=== PATIENT | male | born 1965 | race Asian ===

== ENCOUNTER 2016-06-22 16:27 | Emergency (ER) | payer OTHER ==
[2016-06-22 16:53] VITALS: BP 131/62; PULSE 52; RESP 14; TEMP 96.8; O2SAT 97
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
--- NOTE | 2016-06-22 17:30 | DX ---
Right Wrist, Four Views History: Injury to right wrist, with pain at ulnar aspect. Findings: Normal mineralization and alignment. No evidence for an acute fracture or dislocation. M ild spurring is seen at the scaphoid-trapezium articulation. No evidence for a periarticular erosion or soft tissue calcification. Impression: No evidence for a fracture. Minimal early degenerative change scaphoid-trapezium articu lation.
== END 2016-06-22 17:53 | disposition home or self-care (01) ==
LOC: CED 16:27
DX: S60.211A Contusion of right wrist, initial encounter (principal); Y04.2XXA Assault by strike against or bumped into by another person, initial encounter; Y99.0 Civilian activity done for income or pay; Y92.129 Unspecified place in nursing home as the place of occurrence of the external cause; Y93.F9 Activity, other caregiving
CPT/HCPCS: 73110-PO; G0463-PO; L3807

== ENCOUNTER 2017-04-25 16:28 | Emergency (ER) | payer OTHER ==
[2017-04-25 16:37] VITALS: BP 133/82; PULSE 62; RESP 18; TEMP 98; O2SAT 96
--- NOTE | 2017-04-25 16:43 | EDPHY ---
H & P Stated Complaint: c/o bilat shoulder pain - worse on rt side from lifting Pt's Time Seen by Provider: 04/25/17 16:38 HPI/ROS: CHIEF COMPLAINT: Right shoulder pain HISTORY OF PRESENT ILLNESS: The patient is a 52-year-old man who comes to the emergency department complaining of bilateral shoulder pain, worse on the right. 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 About a week ago he developed pain in both shoulders as well as left elbow. He states that ibuprofen made the pain in his left shoulder and elbow resolved but he persists the with pain in the right shoulder. He has pain with rotating his shoulder externally. He has normal range of motion but states that he has a popping sensation. Normal strength. REVIEW OF SYSTEMS: Constitutional: denies: chills, fever, recent illness, recent injury EENTM: denies: blurred vision, double vision, nose congestion Respiratory: denies: cough, shortness of breath Cardiac: denies: chest pain, irregular heart rate, lightheadedness, palpitations Gastrointestinal/Abdominal: denies: abdominal pain, diarrhea, nausea, vomiting, blood streaked stools Genitourinary: denies: dysuria, frequency, hematuria, pain Musculoskeletal: See HPI Skin: denies: lesions, rash, jaundice, bruising Neurological: denies: headache, numbness, paresthesia, tingling, dizziness, weakness Hematologic/Lymphatic: denies: blood clots, easy bleeding, easy bruising Immunologic/allergic: denies: HIV/AIDS, transplant EXAM: GENERAL: Well-appearing, well-nourished and in no acute distress. HEAD: Atraumatic, normocephalic. EYES: Pupils equal round and reactive to light, extraocular movements intact, sclera anicteric, conjunctiva are normal. ENT: TMs normal, nares patent, oropharynx clear without exudates. Moist mucous membranes. NECK: Normal range of motion, supple without lymphadenopathy or JVD. LUNGS: Breath sounds clear to auscultation bilaterally and equal. No wheezes rales or rhonchi. HEART: Regular rate and rhythm without murmurs, rubs or gallops. ABDOMEN: Soft, nontender, normoactive bowel sounds. No guarding, no rebound. No masses appreciated. BACK: No CVA tenderness, no spinal tenderness, step-offs or deformities EXTREMITIES: Right shoulder pain, no swelling or tenderness, pain with external rotation. Pain with supination. No pain with lateral or anterior elevation. Normal pulses and sensation. Normal strength. NEUROLOGICAL: Cranial nerves II through XII grossly intact. Normal speech, normal gait. 5/5 strength, normal movement in all extremities, normal sensation PSYCH: Normal mood, normal affect. SKIN: Warm, dry, normal turgor, no visible rashes or lesions. Source: Patient Exam Limitations: No limitations - Personal History Current Tetanus Diphtheria and Acellular Pertussis (TDAP): Yes - Medical/Surgical History Hx Asthma: No Hx Chronic Respiratory Disease: No Hx Diabetes: No Hx Cardiac Disease: No Hx Renal Disease: No Hx Cirrhosis: No Hx Alcoholism: No Other PMH: PCP Dr Prince. Tetanus UTD. FLU vacc UTD. Denies surg. - Family History Significant Family History: No pertinent family hx - Social History Smoking Status: Never smoked Alcohol Use: None Drug Use: None Constitutional: Initial Vital Signs Temperature (C) 36.6 C 04/25/17 16:35 Heart Rate 62 04/25/17 16:35 Respiratory Rate 18 04/25/17 16:35 Blood Pressure 133/82 H 04/25/17 16:35 O2 Sat (%) 96 04/25/17 16:35 O2 Delivery Mode Room Air Allergies/Adverse Reactions: No Known Allergies Allergy (Verified 06/22/16 16:53) Home Medications: Medication Instructions Recorded No Medications [NO HOME 1 ea [facility] [place] 11/12/11 MEDICATIONS] Medical Decision Making - Diagnostics Imaging Results: Imaging Impressions Shoulder X-Ray 04/25/17 16:41 Impression: 1. No fracture or dislocation. 2. Minimal acromioclavicular osteoarthritis. Imaging: Discussed imaging studies w/ desulphurizer operator Radiologist ED Course/Re-evaluation: We discussed the x-ray results. The patient is reassured. We discussed ibuprofen and rest and follow up with Orthopedics possibly for MRI and further evaluation. The patient understands and agrees with this plan. He declines any further workup or testing at this time. Differential Diagnosis: Partial list of the Differential diagnosis considered include but were not limited to; ligamentous injury, bursitis, rotator cuff injury, impingement and although unlikely based on the history and physical exam, I also considered nerve injury, fracture, infection, neck injury. I discussed these differential diagnoses and the plan with the patient as well as the usual and expected course. The patient understands that the diagnosis is provisional and that in medicine we are not always correct and that further workup is often warranted. Usual and customary warnings were given. All of the patient's questions were answered. The patient was instructed to return to the emergency department should the symptoms at all worsen or return, otherwise to followup with the physician as we discussed. Departure - Departure Disposition: Home, Routine, Self-Care Clinical Impression: Right shoulder pain Qualifiers: Chronicity: acute Qualified Code(s): M25.511 - Pain in right shoulder Condition: Fair Instructions: Shoulder Pain (ED) Additional Instructions: Take ibuprofen as discussed daily and follow up with the orthopedist is recommended. Referrals: NONE *PRIMARY CARE P,. [Primary Care Provider] - As per Instructions Nicko Smith MD [Medical Doctor] - As per Instructions Stand Alone Forms: Work Limited Duty, Work Comp Follow Up
== END 2017-04-25 17:17 | disposition home or self-care (01) ==
LOC: CED 16:28
DX: S49.91XA Unspecified injury of right shoulder and upper arm, initial encounter (principal); X50.0XXA Overexertion from strenuous movement or load, initial encounter; Y92.69 Other specified industrial and construction area as the place of occurrence of the external cause; Y99.0 Civilian activity done for income or pay; Y93.89 Activity, other specified
CPT/HCPCS: 73030-PO

== ENCOUNTER → 2017-08-02 | Outpatient (CLI) | payer OTHER | LOC: CIMAGING 15:57 | PROVIDERS: ATTEND Family Medicine | DX: J98.4 Other disorders of lung (principal) | CPT/HCPCS: 71046-PO ==

== ENCOUNTER 2017-11-09 11:59 | Day surgery (SDC) | payer OTHER ==
[2017-11-09] MEDS ORDERED: NS 500 ML IV ONE (12:29)
[2017-11-09] MEDS ORDERED: ALBUTEROL 3 ML DEYVIAL IH ONE (12:29)
[2017-11-09] MEDS ORDERED: LIDOCAINE 1% 2 ML INJ ID PRN (12:29)
[2017-11-09] MEDS ORDERED: LIDOCAINE 0.5% 50 ML SDV ONE (12:34)
[2017-11-09] MEDS ORDERED: LIDOCAINE HCL 4% TOPICAL SOLN 50ML ONE (12:36)
[2017-11-09] MEDS ORDERED: LIDOCAINE 1% 300 MG/30 ML SDV ONE (13:12)
[2017-11-09] MEDS ORDERED: MIDAZOLAM 2 MG/2 ML VIAL ONE (13:16)
[2017-11-09] MEDS ORDERED: fentaNYL 100 MCG/2 ML INJ ONE (13:16)
--- NOTE | 2017-11-09 13:33 | PDPROPOC ---
Sedation Plan of Care Sedation Plan of Care: vital signs stable, mental status noted, patient educated of risks, benefits, alternatives, patient can tolerate sedation ASA Classification: ASA 1 Planned drugs: fentanyl, midazolam Mallampati Score: Class 1 Mallampati Reference Image: Patient passed 3-3-2 rule?: Yes
--- NOTE | 2017-11-09 14:18 | BVPULMO ---
[facility] Surgical Services- Pulmonology Patient Name: Adonis Sweeney Procedure Date: 11/09/2017 1:13 PM Patient Type: Outpatient Attending MD/ER Physician: Clay Mandujano MD Procedure: Bronchoscopy Indications: Interstitial lung disease Providers: Clay Mandujano MD Medicines: Lidocaine 2% Nebulizer 2.5 mL, Fentanyl 125 mcg IV, Midazolam 5 mg IV, Lidocain e 1% applied to cords 2 mL, Lidocaine 2% subglottic space 4 mL, Oxygen 4 L/min Complications: No immediate complications Procedure: After informed consent, a time out was performed. N95 masks were worn, and the procedure was done in a negative pressure room. The patient was given appropria te topical anesthesia and intravenous sedation. The fiberopic bronchoscope was pas sed via a bite block orally into the larynx and subsequently into the lower trachea bronchial tree. Throughout the procedure, the patient's blood pressure, pulse, and oxygen saturations were monitored continuously. The was introduced through the mouth and advanced to the tracheobronchial tree. The procedure was accomplished witho ut difficulty. The patient tolerated the procedure well. The total duration of the procedure was 20 minutes. Findings: The nasopharynx/oropharynx appears normal. The larynx appears normal. The vocal cords appear normal. The subglottic space is normal. The trachea is of normal caliber. The keyur is sharp. The tracheobronchial tree of the right lung was examined to at least the first subsegmental level. Bronchial mucosa and anatomy in the right lung are normal; there are no endobronchial lesions, and no secretion s. Left Lung Abnormalities: One large nearly obstructing (greater than 90% obstruc lesley) nodule was found in the left mainstem bronchus. Endobronchial biopsies were performed in the left mainstem bronchus using forceps and sent for histopatholo gy examination. Five samples were obtained. Guided brushings were obtained in the left mainstem bronchus with a cytology brush and sent for routine cytology. One samp le was obtained. Washings were obtained in the left mainstem bronchus and sent for cell count, bacterial culture, viral smears & culture, and fungal & AFB analysis and cytology and routine cytology. The return was bloody. Post Op Diagnosis: - Interstitial lung disease - The airway examination of the right lung was normal. - One nodule was found in the left mainstem bronchus. - An endobronchial biopsy was performed. - Brushings were obtained. - Washings were obtained. - A circumferential and fungating mass was found in the left mainstem bronchus. This lesion is suspicious for malignancy. Estimated Blood Loss: Estimated blood loss was minimal. Recommendation: - Await BAL, biopsy, brushing, culture, cytology and washing results. - Follow up with bronchoscopist in one week. - Patient has a contact number available for emergencies. The signs and symptom s of potential delayed complications were discussed with the patient. Return to norm al activities tomorrow. Written discharge instructions were provided to the patien t. Attending Participation: I personally performed the entire procedure without the assistance of a fellow, resident or surg ical restaurant assistant manager. Clay Mandujano MD Clay Mandujano MD 11/09/2017 2:18:07 PM This report has been signed electronicallyThcalvin Mandujano MD Number of Addenda: 0 Note Initiated On: 11/09/2017 1:13 PM [email or web address]
[2017-11-09 15:19] VITALS: BP 133/70
== END 2017-11-09 15:30 | disposition home or self-care (01) ==
LOC: FSGY 11:59
PROVIDERS: ATTEND Internal Medicine Pulmonary Disease
PROC: 0BB78ZX Excision of Left Main Bronchus, Via Natural or Artificial Opening Endoscopic, Diagnostic (ICD-10-PCS; principal; 2017-11-09 13:00)
PROC: 0BD78ZX Extraction of Left Main Bronchus, Via Natural or Artificial Opening Endoscopic, Diagnostic (ICD-10-PCS; principal; 2017-11-09 13:00)
DX: J84.9 Interstitial pulmonary disease, unspecified (principal); R91.1 Solitary pulmonary nodule; J98.09 Other diseases of bronchus, not elsewhere classified; J45.30 Mild persistent asthma, uncomplicated; Z79.51 Long term (current) use of inhaled steroids
CPT/HCPCS: J2250; J3010; J7613